=== PATIENT | male | born 2000 | race Caucasian/White ===

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

== ENCOUNTER 2022-02-26 03:45 | Emergency (ER) | payer MEDICAID ==
[~2022-02-26] VITALS: Ht 198.1 cm; Wt 105.4 kg
[2022-02-26 08:24] VITALS: BP 105/61
[2022-02-26] MEDS ORDERED: BACITRACIN TOP OINT 1 UD PKG TOP ONE (08:45)
[2022-02-26] MEDS ORDERED: IBUP800T26 PO (08:52)
== END 2022-02-26 09:02 | disposition home or self-care (01) ==
LOC: ER 03:45
DX: S61.412A Laceration without foreign body of left hand, initial encounter (principal); W26.8XXA Contact with other sharp object(s), not elsewhere classified, initial encounter; Y93.89 Activity, other specified; Y92.89 Other specified places as the place of occurrence of the external cause; Y99.8 Other external cause status
CPT/HCPCS: 12002; 99282; J2001

== ENCOUNTER 2022-04-26 10:47 | Emergency (ER) | payer MEDICAID, OTHER ==
[~2022-04-26] VITALS: Ht 190.5 cm; Wt 95.0 kg
[~2022-04-26 10:47] MED LIST: IBUP800T26 PO
[2022-04-26 11:38] VITALS: BP 124/62
[2022-04-26] MEDS ORDERED: LIDOCAINE 1% HCL (LOCAL ANESTH.) INJ 20ML MDV IJ ONE (13:00)
== END 2022-04-26 14:15 | disposition home or self-care (01) ==
LOC: ER 10:47
DX: S61.214A Laceration without foreign body of right ring finger without damage to nail, initial encounter (principal); W45.8XXA Other foreign body or object entering through skin, initial encounter; Y93.89 Activity, other specified; Y92.89 Other specified places as the place of occurrence of the external cause; Y99.8 Other external cause status
CPT/HCPCS: 12001; 99282; J2001